=== PATIENT | female | born 1995 | race Caucasian/White ===

== ENCOUNTER 2018-02-01 18:21 | Emergency (ER) | payer OTHER ==
[~2018-02-01] VITALS: Ht 165.1 cm; Wt 99.8 kg
[2018-02-01 18:21] VITALS: BP_SYST 133
--- NOTE | 2018-02-01 18:21 | NUR ---
Pt BIB BLS, placed to ER bed 05, to gown. Pt states that she is here to get her diabetes checked. Pt also c/o anxiety with hx of "anger issues", Depression, and Bipolar D/O. Pt states that she has not been taking her medications. Pt denies A/V hallucinations, no HI. Pt verbalizes SI with plan. Pt states "I was going to hang myself today on the street because my dad hung himself." Pt appears disheveled and foul body odor. Calm and cooperative demeanor. Personal belongings removed from room and stored. Potentially harmful items removed from room. Under direct observation of sitter.
--- NOTE | 2018-02-01 18:23 | NUR ---
All equipment is removed from ED room 5 with only the gurney left behind with the patient.
--- NOTE | 2018-02-01 18:24 | NUR ---
Patient instructed to wear gown and hospital-issued socks and to remove all items on her person including clothing and place them in a belongings bag. She is compliant at this time. All belongings are placed in 2 plastic bags, tagged with patient label, and relocated to storage room in [facility]. Patient is lying down quietly on gurney with no apparent distress. Will continue to monitor.
--- NOTE | 2018-02-01 18:35 | NUR ---
Security at bedside to suyapa ma
--- NOTE | 2018-02-01 18:45 | NUR ---
Plebotomist Will at bedside for blood draw. Patient is quiet and cooperative with procedure and appears to be in no distress.
--- NOTE | 2018-02-01 19:00 | NUR ---
Patient is smiling and talking coherently. She is lying down comfortably on gurney and appears to have no distress at this time. Will continue to monitor.
[2018-02-01 19:03] LABS: BASOPHILS # (AUTO) 0.1 K/uL (0.0-0.2); BASOPHILS % (AUTO) 1.1 % (0.0-2.0); EOSINOPHILS # (AUTO) 0.2 K/uL (0.0-0.4); EOSINOPHILS % (AUTO) 1.5 % (0.0-4.0); HEMATOCRIT 42.2 % (36-48); HEMOGLOBIN 13.9 g/dL (12.0-16.0); LYMPHOCYTES # (AUTO) 3.2 K/uL (1.0-5.5); LYMPHOCYTES % (AUTO) 25.8 % (20.5-51.5); MEAN CORPUSCULAR HEMOGLOBIN 28 pg (27-31); MEAN CORPUSCULAR HGB CONC 33 % (32-36); MEAN CORPUSCULAR VOLUME 86 fL (79.0-98.0); MONOCYTES % (AUTO) 7.8 % (1.7-9.3); NEUTROPHILS # (AUTO) 7.9 K/uL (1.8-7.7); NEUTROPHILS % (AUTO) 63.8 % (40.0-70.0); PLATELET COUNT (AUTO) 389 K/uL (130-430); RED BLOOD CELL COUNT(AUTO) 4.93 MIL/uL (4.2-6.2); RED CELL DISTRIBUTION WIDTH 13.8 % (9.0-15.0); WHITE BLOOD COUNT (AUTO) 12.4 K/uL (4.5-11.0)
[2018-02-01 19:14] LABS: ANION GAP 10 (5-15); CALCIUM 9.1 mg/dL (8.4-11.0); CHLORIDE 104 mmol/L (98-107); CREATININE 0.78 mg/dL (0.55-1.30); GLUCOSE 94 mg/dL (70-99); SODIUM SERUM 142 mmol/L (136-145); UREA NITROGEN, BLOOD 12 mg/dL (8-21)
[2018-02-01 19:15] LABS: GFR AFRICAN AMERICAN 121 mL/min (>90)
--- NOTE | 2018-02-01 19:15 | NUR ---
Sucide admission assessment documented, put in chart and signed by MD and zinc furnace charger.
--- NOTE | 2018-02-01 19:15 | NUR ---
Patient assisted to the restroom to provide urine sample and suggested to have door slightly open. She is okay with being supervised just outside restoom door. Urine sample endorsed to JORDEN Grey. Patient walked back to [facility] after urine collection.
[2018-02-01 19:20] LABS: ALANINE AMINOTRANSFERASE 29 U/L (12-78); ALBUMIN 3.8 g/dL (3.4-4.8); ASPARTATE AMINOTRANSFERASE 20 U/L (10-37); TOTAL BILIRUBIN 0.3 mg/dL (0.0-1.0)
--- NOTE | 2018-02-01 19:20 | NUR ---
Pt is awake and alert. Pt states she has an active plan to hurt herself by hanging and she has had multiple attempts at it before. No signs of SOB or acute distress noted. Denies any pain at this time. Safety precautions in place. Will continue to monitor.
[2018-02-01 19:22] LABS: ACETAMINOPHEN < 1 ug/mL (1-30); ALCOHOL, BLOOD < 3 mg/dL (<10)
[2018-02-01 19:27] LABS: BILIRUBIN,URINE 1+ (NEGATIVE); BLOOD, URINE NEGATIVE (NEGATIVE); CLARITY/URINE CLEAR (CLEAR); COLOR,URINE YELLOW (YELLOW); GLUCOSE,URINE NEGATIVE (NEGATIVE); KETONES,URINE TRACE (NEGATIVE); LEUKOCYTE ESTERASE ,URINE TRACE (NEGATIVE); NITRITE, URINE NEGATIVE (NEGATIVE); PROTEIN URINE TRACE (NEGATIVE); UROBILINOGEN,URINE 0.2 (0.2-1.0)
--- NOTE | 2018-02-01 19:30 | NUR ---
Briefly and very mildly agitated, patient asks, "can you tell I have anger problems?" She is lying down on gurney with the lights off and states that she is about to go to sleep. No distress noted. Will continue to monitor.
[2018-02-01 19:31] LABS: BACTERIA,URINE MODERATE /HPF (None Seen); MUCUS,URINE 2+ /LPF (None Seen); RBC,URINE 0-3 /HPF (0-3)
[2018-02-01 19:36] LABS: BARBITURATE, URINE NEGATIVE (NEG <=200); METHAMPHETAMINES SCREEN,URINE NEGATIVE (NEG <=500); URINE AMPHETAMINE NEGATIVE (NEG <=500); URINE METHADONE NEGATIVE (NEG <=200)
[2018-02-01 19:37] LABS: BENZODIAZEPINE, URINE NEGATIVE (NEG <=150); CANNABINOID, URINE POSITIVE (NEG <=50); COCAINE, URINE NEGATIVE (NEG <=150); OPIATE, URINE NEGATIVE (NEG <=100); PHENCYCLIDINE SCREEN,URINE NEGATIVE (NEG <=25); UR TRICYCLIC ANTIDEPRESSANTS NEGATIVE (NEG <=300); URINE OXYCODONE SCREEN NEGATIVE (NEG <=100); URINE PROPOXYPHENE SCREEN NEGATIVE (NEG <=300)
--- NOTE | 2018-02-01 19:45 | NUR ---
Pt sitting in bed and speaking calmly. No signs of acute distress noted. Will continue to monitor.
--- NOTE | 2018-02-01 20:00 | NUR ---
Pt sitting in bed. Pt states, "I want to become a man later." Pt also states she prefers to be called Paul. No signs of acute distress noted. Will continue to monitor.
[2018-02-01] MEDS ORDERED: cefTRIAXone 1 GM VIAL IM ONE (20:15)
--- NOTE | 2018-02-01 20:15 | NUR ---
Pt sitting up in bed. No signs of acute distress noted. Will continue to monitor.
--- NOTE | 2018-02-01 20:54 | NUR ---
Pt sitting up in bed. No signs of acute distress noted. Will continue to monitor.
--- NOTE | 2018-02-01 21:08 | NUR ---
PATIENT SITTING UP EATTING A SANDWICH
--- NOTE | 2018-02-01 21:18 | NUR ---
Pt sitting up in bed. No signs of acute distress noted. Will continue to monitor.
--- NOTE | 2018-02-01 21:39 | NUR ---
Pt sitting up in bed. No signs of acute distress noted. Will continue to monitor.
--- NOTE | 2018-02-01 21:49 | NUR ---
PATIENT IS UP AND MOVING AROUND THE ROOM.
--- NOTE | 2018-02-01 21:51 | NUR ---
Patient in room pacing and cursing. Appears to be getting increasingly agitated. States " I'm fucking done with this shit. I want to leave." notified.
[2018-02-01] MEDS ORDERED: LORazepam 1 MG TABLET PO ONE (22:00)
--- NOTE | 2018-02-01 22:00 | NUR ---
Patient is speaking mildly agressively to staff outside of room and is standing and sitting. She states that she would like to speak with her mother and that she will "[facility]." JORDEN Lee at bedside offerring medication to help her sleep. Patient refuses.
--- NOTE | 2018-02-01 22:05 | NUR ---
Pt is becoming aggressive and pacing room. DO outside room monitoring patient. Will continue to monitor.
--- NOTE | 2018-02-01 22:15 | NUR ---
Patient is sitting upright in bed and is crying. She states, "Stop. I beg you to stop whatever you're doing. I want you to stand somewhere else." She expresses that she wants to call her mom.
--- NOTE | 2018-02-01 22:29 | NUR ---
Pet team at bedside evaluating patient
--- NOTE | 2018-02-01 22:32 | NUR ---
Patient states to PET staff, "I don't want to hang myself! You don't understand!"
--- NOTE | 2018-02-01 22:45 | NUR ---
Patient is lying quietly on gurney with no apparent distress noted. Will continue to monitor.
--- NOTE | 2018-02-01 22:51 | NUR ---
Patient moved from [place] to floor to lay down on her blanket. She says she would rather sleep on the floor and states, "y'all better not give me a shot."
--- NOTE | 2018-02-01 22:56 | NUR ---
PET team calling for bed placement.
--- NOTE | 2018-02-01 22:56 | NUR ---
Gurney is removed from room, and patient is given extra blankets and a pillow.
--- NOTE | 2018-02-01 23:02 | NUR ---
Patient is laying quietly on floor and appears to be sleeping. No distress noted. Will continue to monitor.
--- NOTE | 2018-02-01 23:15 | NUR ---
Patient appears to be sleeping on floor. No distress is noted. Will continue to monitor.
--- NOTE | 2018-02-01 23:30 | NUR ---
Patient continues to sleep on the floor. No distress noted at this time. Will continue to monitor.
--- NOTE | 2018-02-01 23:45 | NUR ---
Patient continues to sleep on floor with a blanket under her and over her. No distress noted. Will continue to monitor.
--- NOTE | 2018-02-02 | NUR ---
Patient is laying down on floor with no distress. Will continue to monitor.
--- NOTE | 2018-02-02 00:05 | NUR ---
Pt sleeping on floor of room per pts request. No signs of acute distress noted. Will continue to monitor.
--- NOTE | 2018-02-02 00:15 | NUR ---
Patient is sleeping on the floor, and no distress is noted. Will continue to monitor.
--- NOTE | 2018-02-02 00:30 | NUR ---
Patient continues to sleep on the floor. No acute distress noted. Will continue to monitor.
--- NOTE | 2018-02-02 00:45 | NUR ---
Patient continues to sleep on the floor. No acute distress noted. Will continue to monitor.
--- NOTE | 2018-02-02 01:00 | NUR ---
Patient changes position while continuing to sleep on the floor. No acute distress noted. Will continue to monitor.
--- NOTE | 2018-02-02 01:15 | NUR ---
Patient continues to sleep on the floor. No acute distress noted. Will continue to monitor.
--- NOTE | 2018-02-02 01:30 | NUR ---
Pt sleeping on the floor. No signs of acute distress noted. Will continue to monitor.
--- NOTE | 2018-02-02 01:51 | NUR ---
Pt sleeping on the floor. No signs of acute distress noted. Will continue to monitor.
--- NOTE | 2018-02-02 02:07 | NUR ---
Patient continues to sleep on the floor. No acute distress noted. Will continue to monitor.
--- NOTE | 2018-02-02 02:28 | NUR ---
Pt sleeping on the floor. No signs of acute distress noted. Will continue to monitor.
--- NOTE | 2018-02-02 02:45 | NUR ---
Pt is awake and asking to put bed back in room to sleep on. Bed is put back inside pts room. Safety precautions in place. No signs of acute distress noted. Will continue to monitor.
--- NOTE | 2018-02-02 03:00 | NUR ---
Pt resting in bed. No signs of acute distress noted. Will continue to monitor.
--- NOTE | 2018-02-02 03:15 | NUR ---
Pt sleeping in bed. No signs of acute distress noted. Safety precautions in place. Will continue to monitor.
--- NOTE | 2018-02-02 03:30 | NUR ---
Pt sleeping in bed. No signs of acute distress noted. Safety precautions in place. Will continue to monitor.
--- NOTE | 2018-02-02 03:45 | NUR ---
Pt sleeping in bed. No signs of acute distress noted. Safety precautions in place. Will continue to monitor.
--- NOTE | 2018-02-02 04:00 | NUR ---
Pt sleeping in bed. No signs of acute distress noted. Safety precautions in place. Will continue to monitor.
--- NOTE | 2018-02-02 04:15 | NUR ---
Pt continues to be sleeping in bed. No signs of acute distress noted. Safety precautions in place. Will continue to monitor.
--- NOTE | 2018-02-02 04:30 | NUR ---
Pt sleeping in bed. No signs of acute distress noted. Safety precautions in place. Will continue to monitor.
--- NOTE | 2018-02-02 04:45 | NUR ---
Pt sleeping in bed. No signs of acute distress noted. Safety precautions in place. Will continue to monitor.
--- NOTE | 2018-02-02 05:00 | NUR ---
Pt sleeping in bed. VSS. No signs of acute distress noted. Safety precautions in place. Will continue to monitor.
--- NOTE | 2018-02-02 05:15 | NUR ---
Pt sleeping in bed. No signs of acute distress noted. Safety precautions in place. Will continue to monitor.
--- NOTE | 2018-02-02 05:30 | NUR ---
Pt sleeping in bed. No signs of acute distress noted. Safety precautions in place. Will continue to monitor.
--- NOTE | 2018-02-02 05:45 | NUR ---
Spoke to Dietry to bring a breakfast tray with sucide precautions.
--- NOTE | 2018-02-02 06:00 | NUR ---
Pt sleeping in bed. No signs of acute distress noted. Safety precautions in place. Will continue to monitor.
--- NOTE | 2018-02-02 06:15 | NUR ---
Assisted pt to restroom and back to bed. No signs of acute distress noted. Safety precautions in place. Will continue to monitor.
--- NOTE | 2018-02-02 06:30 | NUR ---
Water given in paper cup to pt, per pts request. Pt sitting in bed drinking water. No signs of acute distress noted. Safety precautions in place. Will continue to monitor.
--- NOTE | 2018-02-02 06:45 | NUR ---
Pt sleeping in bed. No signs of acute distress noted. Safety precautions in place. Will continue to monitor.
--- NOTE | 2018-02-02 07:00 | NUR ---
Report given to day shift RN. Pt sleeping in bed. No signs of acute distress noted. Safety precautions in place.
--- NOTE | 2018-02-02 07:07 | NUR ---
Sucide admission assessment documented, put in chart and signed by MD and rn charge.
--- NOTE | 2018-02-02 07:10 | NUR ---
Security at bedside wanding patient. Pt tolerated well.
--- NOTE | 2018-02-02 07:22 | NUR ---
Breakfast tray delivered to patient. Pt eating at bedside. no acute distress.
--- NOTE | 2018-02-02 07:35 | NUR ---
Pt quietly eating at bedside. no acute distress. Will continue to monitor.
--- NOTE | 2018-02-02 07:51 | NUR ---
Pt resting in hospital bed. rise and fall of chest are symmetrical. no acute distress. will continue to monitor.
--- NOTE | 2018-02-02 08:05 | NUR ---
Pt resting in hospital bed. rise and fall of chest are symmetrical. no acute distress. will continue to monitor.
--- NOTE | 2018-02-02 08:21 | NUR ---
Pt sleeping in hospital bed. No acute distress. Will continue to monitor.
--- NOTE | 2018-02-02 08:35 | NUR ---
Pt sleeping comfortably in hospital bed. No acute distress. will continue to monitor.
--- NOTE | 2018-02-02 08:50 | NUR ---
Pt sleeping in hospital bed. no acute distress.
--- NOTE | 2018-02-02 09:06 | NUR ---
Pt resting in hospital bed. rise and fall of chest are symmetrical. no acute distress. will continue to monitor.
--- NOTE | 2018-02-02 09:20 | NUR ---
Pt sleeping in hospital bed. Rise and fall of chest is symmetrical. no acute distress. will continue to monitor.
--- NOTE | 2018-02-02 09:35 | NUR ---
Pt sleeping in hospital bed. Rise and fall of chest is symmetrical. no acute distress. will continue to monitor.
--- NOTE | 2018-02-02 09:50 | NUR ---
Pt sleeping in hospital bed. Rise and fall of chest is symmetrical. no acute distress. will continue to monitor.
--- NOTE | 2018-02-02 10:02 | NUR ---
Pt ambulated to restroom with stable gait.
--- NOTE | 2018-02-02 10:04 | NUR ---
Pt ambulated back to hospital bed with steady gait. No acute distress. Will continue to monitor.
--- NOTE | 2018-02-02 10:15 | NUR ---
Pt requested to call mother. Pt is currently speaking with mother via phone, crying and upset.
--- NOTE | 2018-02-02 10:35 | NUR ---
Pt requested if she can shower because she "hasn't showered in weeks."
--- NOTE | 2018-02-02 10:40 | NUR ---
Accompanied patient to shower room in [facility]. Pt is instructed that door must be slightly open for supervision. Pt verbalized understanding of having shower supervised.
--- NOTE | 2018-02-02 11:05 | NUR ---
Accompanied pt back to hospital bed. Pt is currently brushing her teeth.
--- NOTE | 2018-02-02 11:20 | NUR ---
Pt resting comfortably in hospital bed, reading magazine. No acute distress. Pt is calm and cooperative. Pt states "I feel so much better after showering, thank you." Will continue to monitor.
--- NOTE | 2018-02-02 11:32 | NUR ---
Report received from Aury LEONARDO, pt on stable condition, reading a magazine at this time, [id number]&[id number].
--- NOTE | 2018-02-02 12:05 | NUR ---
pt laying in hospital bed, no acute distress. Will continue to monitor.
--- NOTE | 2018-02-02 12:20 | NUR ---
Pt states she feels her heart beating fast and is having a hard time falling asleep. Notified Dr. Aviles
--- NOTE | 2018-02-02 12:22 | NUR ---
Medication was given, pt tolerated well. no acute distress. Will continue to monitor.
--- NOTE | 2018-02-02 12:26 | NUR ---
Pt ambulated to restroom with steady gait.
--- NOTE | 2018-02-02 12:29 | NUR ---
Pt ambulated back to hospital bed. Pt states she had a bowel movement. No distress.
[2018-02-02] MEDS ORDERED: DIPHENHYDRAMINE HCL 50 MG CAPSULE PO ONE (12:30)
--- NOTE | 2018-02-02 12:43 | NUR ---
Pt sleeping comfortably in hospital bed. no acute distress. Rise and fall of chest is symmetrical. Will continue to monitor.
--- NOTE | 2018-02-02 13:01 | NUR ---
Pt sleeping comfortably in hospital bed. Rise and fall of chest is symmetrical, no acute distress. will continue to monitor.
--- NOTE | 2018-02-02 13:15 | NUR ---
Pt sleeping in hospital bed. Rise and fall of chest is symmetrical. no acute distress. will continue to monitor.
--- NOTE | 2018-02-02 13:30 | NUR ---
Pt sleeping in hospital bed. Rise and fall of chest is symmetrical. no acute distress. Will continue to monitor.
--- NOTE | 2018-02-02 13:45 | NUR ---
Pt sleeping in hospital bed. Rise and fall of chest is symmetrical. no acute distress. will continue to monitor.
--- NOTE | 2018-02-02 14:00 | NUR ---
Pt sleeping in hospital bed. no acute distress. Will continue to monitor.
--- NOTE | 2018-02-02 14:15 | NUR ---
Pt woke up and stated she had to use the restroom. Pt ambulated to restroom with steady gait.
--- NOTE | 2018-02-02 14:22 | NUR ---
Pt ambulated back to hospital bed. Water was offered to patient. Pt is currenty drinking cup of water. No acute distress. Will continue to monitor.
--- NOTE | 2018-02-02 14:30 | NUR ---
Pt resting comfortably in hospital bed. No acute distress. Will continue to monitor.
--- NOTE | 2018-02-02 14:40 | NUR ---
Pt walking around in room, laughing and smiling. No acute distress. Will continue to monitor.
--- NOTE | 2018-02-02 14:44 | NUR ---
Pt is pacing in room with door closed and curtains open, stating "don't give me a shot, i don't want the shot." informed pt, there are no orders for medication. pt stated "okay, good."
--- NOTE | 2018-02-02 14:56 | NUR ---
Pt is currently on the phone, speaking with mother in a calmly manner.
--- NOTE | 2018-02-02 15:10 | NUR ---
Pt resting comfortably in hospital bed. no acute distress. will continue to monitor.
--- NOTE | 2018-02-02 15:25 | NUR ---
Pt resting comfortably in hospital bed. No acute distress noted.
--- NOTE | 2018-02-02 15:43 | NUR ---
Pt walking around in room. Per pt, "Since i have diabetes, I have to exercise."
--- NOTE | 2018-02-02 15:54 | NUR ---
[facility] Diet[facility] ordered for patient.
--- NOTE | 2018-02-02 16:00 | NUR ---
Pt is sitting upright, eating dinner tray. No acute distress.
--- NOTE | 2018-02-02 16:15 | NUR ---
Pt resting comfortably in hospital bed. No acute distress. Will continue to monitor.
--- NOTE | 2018-02-02 16:30 | NUR ---
Pt is resting comfortably in hospital bed. Pt requested for lights off. No acute distress. Will continue to monitor.
--- NOTE | 2018-02-02 16:45 | NUR ---
Pt resting comfortably in hospital bed. No acute distress noted. Will continue to monitor.
--- NOTE | 2018-02-02 17:00 | NUR ---
Pt is eating her pudding at bedside. No acute distress. Will continue to monitor.
--- NOTE | 2018-02-02 17:15 | NUR ---
Pt is resting comfortably in bed. no acute distress. Will continue to monitor.
--- NOTE | 2018-02-02 17:30 | NUR ---
Pt is resting comfortably in bed. no acute distress. Will continue to monitor.
--- NOTE | 2018-02-02 17:45 | NUR ---
Pt is resting comfortably in bed. no acute distress. Will continue to monitor.
--- NOTE | 2018-02-02 18:00 | NUR ---
Pt resting comfortably in hospital bed. No acute distress. Will continue to monitor.
--- NOTE | 2018-02-02 18:15 | NUR ---
Pt ambulated to restroom and back to bed with steady gait. No acute distress. Will continue to monitor.
--- NOTE | 2018-02-02 18:30 | NUR ---
pt resting comfortably in hospital bed. will continue to monitor.
--- NOTE | 2018-02-02 18:45 | NUR ---
Pt sitting up in bed, no acute distress. Will continue to monitor.
--- NOTE | 2018-02-02 19:02 | NUR ---
Pt is resting comfortably in hospital bed. Meal tray ordered for patient.
--- NOTE | 2018-02-02 19:15 | NUR ---
Pt currently eating meal at bedside.
--- NOTE | 2018-02-02 19:30 | NUR ---
Pt resting comfortably in hospital bed. no acute distress. will continue to monitor.
--- NOTE | 2018-02-02 19:40 | NUR ---
Security at bedside wanding patient. Pt tolerated well.
--- NOTE | 2018-02-02 19:45 | NUR ---
PATIENT EATTING DINNER .
--- NOTE | 2018-02-02 19:55 | NUR ---
PATIENT Addendum: 02/02/18 at 5 by SDMTND PATIENT ASKING FOR A BENADRYL TO GO TO SLEEP.
--- NOTE | 2018-02-02 20:19 | NUR ---
Pt resting comfortably in hospital bed. no acute distress. will continue to monitor.
--- NOTE | 2018-02-02 20:35 | NUR ---
Pt is currently brushing her teeth, back in bed.
--- NOTE | 2018-02-02 20:55 | NUR ---
Pt resting comfortably in hospital bed. no acute distress. will continue to monitor.
--- NOTE | 2018-02-02 21:10 | NUR ---
Pt resting comfortably in hospital bed. no acute distress. will continue to monitor.
[2018-02-02] MEDS ORDERED: DIPHENHYDRAMINE HCL 25 MG CAPSULE PO ONE (21:15)
[2018-02-02] MEDS ORDERED: LORazepam 1 MG TABLET PO ONE (21:15)
--- NOTE | 2018-02-02 21:18 | NUR ---
Patient requesting to take benadryl and ativan medication in 30 min because she wants to color. No acute distress noted. MD notified.
--- NOTE | 2018-02-02 21:30 | NUR ---
pt is resting comfortably in bed coloring. no signs of distress. will continue to monitor.
--- NOTE | 2018-02-02 21:40 | NUR ---
pt requested for a sandwich before bed. notified JORDEN Young. pt is walking around room. no signs of distress. will continue to monitor.
--- NOTE | 2018-02-02 21:45 | NUR ---
pt is relaxing in bed. sandwich is at bedside. pt is requesting medication at this time. will continue to monitor.
--- NOTE | 2018-02-02 22:00 | NUR ---
pt is resting in bed with lights off. pt requested table and sandwich be taken out of room because they are "triggers". table and sandwich are removed from room. will continue to monitor.
--- NOTE | 2018-02-02 22:15 | NUR ---
pt is resting in bed with lights off. pt seems aggitated because door can not be closed all the way stating "might as well take me to a mental hospital." will continue to monitor.
--- NOTE | 2018-02-02 22:24 | NUR ---
pt requested to go to the bathroom. pt stated "dont look at me im nervous." pt ambulated to bathroom. pt is back resting in bed. will continue to monitor.
--- NOTE | 2018-02-02 22:45 | NUR ---
pt is sleeping in bed. no signs of distress. will continue to monitor.
--- NOTE | 2018-02-02 23:00 | NUR ---
pt is sleeping in bed. no signs of distress. will continue to monitor.
--- NOTE | 2018-02-02 23:15 | NUR ---
pt is sleeping in bed. no signs of distress. will continue to monitor.
--- NOTE | 2018-02-02 23:30 | NUR ---
pt is sleeping in bed. no signs of distress. will continue to monitor.
--- NOTE | 2018-02-02 23:45 | NUR ---
pt is sleeping in bed. no signs of distress. will continue to monitor.
--- NOTE | 2018-02-03 | NUR ---
pt is sleeping in bed. no signs of distress. will continue to monitor.
--- NOTE | 2018-02-03 00:15 | NUR ---
pt is sleeping in bed. no signs of distress. will continue to monitor.
--- NOTE | 2018-02-03 00:30 | NUR ---
pt is sleeping in bed. no signs of distress. will continue to monitor.
--- NOTE | 2018-02-03 00:45 | NUR ---
pt is sleeping in bed. no signs of distress. will continue to monitor.
--- NOTE | 2018-02-03 01:00 | NUR ---
pt is sleeping in bed. no signs of distress. will continue to monitor.
--- NOTE | 2018-02-03 01:15 | NUR ---
pt is sleeping in bed. no signs of distress. will continue to monitor.
--- NOTE | 2018-02-03 01:30 | NUR ---
pt is sleeping in bed. no signs of distress. will continue to monitor.
--- NOTE | 2018-02-03 01:45 | NUR ---
pt is sleeping in bed. no signs of distress. will continue to monitor.
--- NOTE | 2018-02-03 02:00 | NUR ---
pt is sleeping in bed. no signs of distress. will continue to monitor.
--- NOTE | 2018-02-03 02:15 | NUR ---
Pt sleeping comfortably in bed with no signs of distress. Will continue to monitor.
--- NOTE | 2018-02-03 02:30 | NUR ---
Pt awake and asking for snacks and water. Water provided per request.
--- NOTE | 2018-02-03 02:38 | NUR ---
Katherine provided per request.
--- NOTE | 2018-02-03 02:45 | NUR ---
pt is sleeping in bed. no signs of distress. will continue to monitor.
--- NOTE | 2018-02-03 03:00 | NUR ---
pt is sleeping in bed. no signs of distress. will continue to monitor.
--- NOTE | 2018-02-03 03:15 | NUR ---
pt is sleeping in bed. no signs of distress. will continue to monitor.
--- NOTE | 2018-02-03 03:22 | NUR ---
pt is sitting up in bed eating a sandwich. no signs of distress. will continue to monitor.
--- NOTE | 2018-02-03 03:30 | NUR ---
pt ambulated to bathroom. no signs of distress. will continue to monitor.
--- NOTE | 2018-02-03 03:45 | NUR ---
pt is sleeping in bed. no signs of distress. will continue to monitor.
--- NOTE | 2018-02-03 04:00 | NUR ---
pt is sleeping in bed. no signs of distress. will continue to monitor.
--- NOTE | 2018-02-03 04:15 | NUR ---
pt is sleeping in bed. no signs of distress. will continue to monitor.
--- NOTE | 2018-02-03 04:30 | NUR ---
pt is sleeping in bed. no signs of distress. will continue to monitor.
--- NOTE | 2018-02-03 04:45 | NUR ---
pt is sleeping in bed. no signs of distress. will continue to monitor.
--- NOTE | 2018-02-03 05:00 | NUR ---
pt is sleeping in bed. no signs of distress. will continue to monitor.
--- NOTE | 2018-02-03 05:15 | NUR ---
pt is sleeping in bed. no signs of distress. will continue to monitor.
--- NOTE | 2018-02-03 05:30 | NUR ---
pt is sleeping in bed. no signs of distress. will continue to monitor.
--- NOTE | 2018-02-03 05:45 | NUR ---
pt is sleeping in bed. no signs of distress. will continue to monitor.
--- NOTE | 2018-02-03 06:00 | NUR ---
pt is sleeping in bed. no signs of distress. will continue to monitor.
--- NOTE | 2018-02-03 06:15 | NUR ---
pt is sleeping in bed. no signs of distress. will continue to monitor.
--- NOTE | 2018-02-03 06:29 | NUR ---
OBSERVATION NOTES : PATIENT CONTINUES TO BE LYING DOWN ON GURNEY WITH EYES CLOSED WILL CONTINUE TO MONITOR .
--- NOTE | 2018-02-03 06:45 | NUR ---
OBSERVATION NOTES: Patient continues to be lying down with eyes closed .will continue to monitor
--- NOTE | 2018-02-03 07:03 | NUR ---
OBSERVATION NOTES: Patient continues to be lying down patient turned to her left side and covered herself up with the blanket continues to appear to be sleeping .
--- NOTE | 2018-02-03 07:10 | NUR ---
Report given to osmar LEONARDO. Care endorsed.
--- NOTE | 2018-02-03 07:15 | NUR ---
Breakfast tray: safety tray, arrived for patient. Patient states she does not want breakfast at this time. States she will "eat later".
--- NOTE | 2018-02-03 07:17 | NUR ---
OBSERVATION NOTES: Patient continues to be lying down on her left side with eyes closed .
--- NOTE | 2018-02-03 07:30 | NUR ---
OBSERVATION NOTES: Patient recieved a breakfast tray. patient stated that she did not want her breakfast at this time tray was set aside informed patient when she was ready just to ask for breakfast .
--- NOTE | 2018-02-03 07:45 | NUR ---
patient is sleeping in bed. no signs of distress. will continue to monitor.
--- NOTE | 2018-02-03 08:06 | NUR ---
OBSERVATION NOTES :Patient continues to be lying down on gourey with a blanket appears to be asleep will continue to monitor .
--- NOTE | 2018-02-03 08:17 | NUR ---
OBSERVATION NOTES : Patient continues to be lying down with eyes closed will continue to monitor .
--- NOTE | 2018-02-03 08:33 | NUR ---
OBSERVATION NOTES: Patient continues to be lying down with eyes closed .will continue to monitor.
--- NOTE | 2018-02-03 08:47 | NUR ---
OBSERVATION NOTES: Patient is awake sitting at the side of the bed eatting breakfast .Patient asked to call her mother rn will be notified .will continue to mointor
--- NOTE | 2018-02-03 09:03 | NUR ---
OBSERVATION NOTES : Patient was assist to the restroom now back in bed finishing up her breakfast .will continue to monitor .
--- NOTE | 2018-02-03 09:20 | NUR ---
OBSERVATION NOTES : Patient is walking around in room talking to her mother on the phone patient aslo asked to take a shower .
--- NOTE | 2018-02-03 10:06 | NUR ---
Patient to be transferred to [facility] . Is being transferred due to higher level of care. Receiving facility has accepting physician and available space. ER physician has signed transfer form. Patient or responsible alliance party has agreed to transfer and signed form. Patient belongings inventoried and will be sent with patient. Copy of nursing notes, lab reports, EKG, Physicians Orders and X-rays to be sent with patient. Report called to Zuleyma at receiving facility. Receiving physician is . ambulance service has been called for transfer.
--- NOTE | 2018-02-03 10:10 | NUR ---
OBSERVATION NOTES: Patient is back from shower clean linen was provided patient is now walking around in room .patient asked to color .coloring supplies were provided at bedside .
--- NOTE | 2018-02-03 10:26 | NUR ---
OBSERVATION NOTES: Patient is sitting in bed coloring .will continue to montior .
--- NOTE | 2018-02-03 10:30 | NUR ---
OBSERVATION NOTES: Patient continues to be sitting on side of the bed coloring .will continue to monitor .
--- NOTE | 2018-02-03 10:46 | NUR ---
OBSERVATION NOTES: Patient vitals were at bedside patient is up walking around.
[2018-02-03 11:00] VITALS: BP_SYST 101
[2018-02-03] MEDS ORDERED: BACITRACIN 1 GM OINT TP ONE (11:00)
--- NOTE | 2018-02-03 11:00 | NUR ---
Pt transported to [facility] with original [id number].Pt cooperative w/ no acute distrss noted.
== END 2018-02-03 11:00 ==
LOC: SED 18:21 → EDBD 18:21 → SED 02-03 11:00
DX: R45.851 Suicidal ideations (principal); E11.9 Type 2 diabetes mellitus without complications; F31.9 Bipolar disorder, unspecified
CPT/HCPCS: 36415; 80053; 80307; 81000; 81025; 85025; 87086; 96372; 99285; G0480; G0481; G0482; J0696; Q0163 ×2